=== PATIENT | female | born 1960 | race Caucasian/White ===

== ENCOUNTER 2020-09-10 09:09 | Emergency (ER) | payer BC ==
[~2020-09-10] VITALS: Ht 170.2 cm; Wt 70.0 kg
[2020-09-10] MEDS ORDERED: CEPHALEXIN500 MG PO (09:37)
[2020-09-10] MEDS ORDERED: NEOSPORI2 EX (09:38)
[2020-09-10 09:41] VITALS: BP 122/68
== END 2020-09-10 09:49 | disposition home or self-care (01) | DRG 951 ==
LOC: ED 09:09
DX: Z48.01 Encounter for change or removal of surgical wound dressing (principal); L53.8 Other specified erythematous conditions; Z85.828 Personal history of other malignant neoplasm of skin